=== PATIENT | male | born 1940 | race Caucasian/White ===

== ENCOUNTER 2016-08-07 13:30 | Inpatient (IN) | payer MEDICARE, BC ==
[~2016-08-07] VITALS: Ht 162.6 cm; Wt 60.1 kg
--- NOTE | ~2016-08-07 | ENPV ---
Vascular Lower Extremity Vein Mapping Procedure Demographics Patient Name DEBBIE ANDRADE Date of Study 08/07/2016 Patient Number [id number] Gender Male Date of 1940 Age 76 Visit Number [id number] Height 64 Accession Number [id number] Weight 125 Referring Maxime Hunt MD Physician DO Physician Physician Ordering Physician Maxime Bush DO Splicing Machine Operator Manager Of Maintenance Serena De Los Santos RVT Conclusions Summary Right GSV suitable for harvest from origin to knee. From knee to calf the GSV decreases in diameter. Left GSV suitable for harvest from origin to mid thigh. Procedure Type of Study: Veins:Lower Extremity Vein Mapping, Vein Mapping HI. Indications for Study:Pre op heart valve surgery. Appropriate Use Criteria:9 Patient Status:Routine. Study Location:Inpatient Portable. Technical Quality:Adequate visualization. Velocities are measured in cm/s ; Diameters are measured in cm + ++--------++--------+ !Superficial - Great Saphenous Vein !!Right !!Left ! + ++--------++--------+ !Location !!Diameter!!Diameter! + ++--------++--------+ !Sapheno Femoral Junction !!0.54 !!0.39 ! + ++--------++--------+ !GSV High Thigh !!0.27 !!0.24 ! + ++--------++--------+ !GSV Mid Thigh !!0.22 !!0.22 ! + ++--------++--------+ !GSV Low Thigh !!0.23 !! ! + ++--------++--------+ !GSV Knee !!0.13 !! ! + ++--------++--------+ !GSV Mid Calf !!0.11 !! ! + ++--------++--------+ !GSV Low Calf !!0.18 !! ! + ++--------++--------+ Signature dtt: BESSIE GARCIA: 08/07/16 1859 Physician Self Edit
--- NOTE | ~2016-08-07 | HP ---
PATIENT'S NAME: DEBBIE ANDRADE [facility] AGE: 76 Y [address] ROOM: [id number] [place], [place] [address] LOCATION: GPCU ADMIT DATE: 08/07/2016 History & Physical DISCHARGE DATE: 08/19/2016 FAMILY PHYSICIAN: Anai Smith ATTENDING PHYSICIAN: Delfino Easley DATE OF SERVICE: 08/07/2016 HISTORY OF PRESENT ILLNESS: Multivessel coronary artery disease. The patient is a very pleasant, 76-year-old, white male from [place], [place]. The patient was recently evaluated by his care provider with findings of atrial flutter. The patient did not have any complaints with chest pain or shortness of breath. He was set up to see Cardiology and underwent a stress test which returned markedly positive with an anterior ischemia and it was therefore recommended that he undergo a cardiac catheterization. This was done by Dr. Xie today in [place]. Findings were for severe multivessel coronary artery disease requiring surgical revascularization. An echo had been done at some point, but the results are not available to us at this time. There may also be a pulmonary hypertension. Following the catheterization, Dr. Xie contacted Dr. Easley for the transfer of the patient to [facility] under the care of Dr. Easley for surgical revascularization. PAST MEDICAL HISTORY: Illnesses: Dyslipidemia, atrial flutter, history of prostate cancer, gout, and GERD. SURGERIES/PROCEDURES: Prostate surgery, cholecystectomy, bilateral carpal tunnel surgery, and upper and lower extraction of teeth. ALLERGIES: NO KNOWN DRUG ALLERGIES. PERSONAL HISTORY: The patient [place] in [place]. He lives at home by himself. He has never been . He has never had children. 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 He has never consumed alcohol. He has never smoked. He served in the and in the [employer]. FAMILY HISTORY: His mother had history with goiter as well as breast cancer. He has a strong family history of coronary artery disease with his father having heart disease. He had a brother who from coronary artery disease and had had two CABGs by the age of 51. His brother was also a heavy smoker. He had PATIENT'S NAME: DEBBIE ANDRADE [facility] AGE: 76 Y [address] ROOM: [id number] [place], [place] [address] LOCATION: GPCU ADMIT DATE: 08/07/2016 History & Physical DISCHARGE DATE: 08/19/2016 FAMILY PHYSICIAN: Anai Smith ATTENDING PHYSICIAN: Delfino Easley another brother who had a myocardial infarction, and then another brother with a history of Parkinson's. HOME MEDICATIONS: Include, 1. Allopurinol 300 mg daily. 2. Aspirin 81 mg daily. 3. Diltiazem 120 mg extended release p.o. b.i.d. 4. [place] 5/325 one tab q.4 hours p.r.n. 5. Fiber Therapy 500 mg tablets, up to a 1000 mg p.o. q.4 hours p.r.n. constipation. 6. Multivitamin daily. 7. Fish oil 1000 mg daily. 8. Omeprazole 20 mg daily. 9. Potassium chloride 40 mEq b.i.d. 10. Lyrica 50 mg daily. 11. Zantac 150 mg daily. 12. Zocor 10 mg at h.s. 13. Vitamin B complex one tablet daily. SYSTEM REVIEW: GENERAL: No recent change in weight or appetite. No fever, chills, or sweats. No excessive fatigue. HEENT: He has some age-related visual changes. Does wear reading glasses. He is hard of hearing. No difficulty swallowing. The patient does wear upper and lower dentures. He does not currently have his dentures with him. RESPIRATORY: No recent complaints of shortness of breath, PAINTER, or PND. CARDIOVASCULAR: No chest pain, chest pressure, palpitations, and he has had some fluttering in his chest lately, that started at the workup that has currently brought the patient to the hospital. No complaints of lower extremity edema. GI: Does have fairly significant GERD for which he takes PPI and H2 hernandez. He does have very chronic constipation for which he and takes fiber medication. : Has had a history of prostate cancer and had surgery. He is chronically incontinent of urine and states that he wears briefs at home. He does have a very difficult time voiding if he is constipated. MUSCULOSKELETAL: Generalized arthritic aches and pains. He does not require any assistive devices for walking. NEUROLOGIC: No frequent or severe headaches. Has had a history of shingles and takes Lyrica. No history of seizures, memory loss, or syncope. ENDOCRINE: No history of diabetes or thyroid conditions. INTEGUMENT: No known skin diseases. PHYSICAL EXAMINATION: PATIENT'S NAME: DEBBIE ANDRADE [facility] AGE: 76 Y [address] ROOM: [place] [address] [facility] ADMIT DATE: 08/07/2016 History & Physical DISCHARGE DATE: 08/19/2016 FAMILY PHYSICIAN: Anai Smith ATTENDING PHYSICIAN: Delfino Easley VITAL SIGNS: Blood pressure 124/94, pulse is 94, respirations 16, O2 saturations 98% on room air. Weight is 58 kg, height is 162.5 cm. GENERAL: He is very pleasant. He is hard of hearing. HEENT: Normocephalic with EOMIs intact. He is edentulous. NECK: No palpable lymphadenopathy or thyromegaly. LUNGS: Clear to auscultation to the anterior. CARDIOVASCULAR: Tachy with atrial flutter. The heart tones are distant. ABDOMEN: Soft, nontender by 4 quadrants with positive bowel sounds throughout. EXTREMITIES: No overt varicosities or edema. MUSCULOSKELETAL: Good range of motion to bilateral upper and lower extremities. NEUROLOGIC: Alert, oriented. SKIN: Does have sunspots. IMPRESSION: 1. Severe multivessel coronary artery disease. 2. Tachycardia/atrial flutter. 3. Constipation, chronic. 4. Urinary incontinence. RECOMMENDATION AND PLAN: Dr. Easley reviewed the catheterization studies sent over from [place]. The patient will require a five vessel bypass consisting of a PDA, PL, LAD, OM, and ramus. We will need to get an echocardiogram as we are not able to reach the outlying facility to get the information. We will need to evaluate for possible pulmonary hypertension and see about the squeeze of the heart. We will be getting lab studies. The patient will need carotid Dopplers and vein mapping. The patient has consented to the surgery after discussion with Dr. Easley. Plans are for a first case tomorrow morning. YOSVANY CRISTINA APRN FOR DELFINO EASLEY DO DLQ/modl /[id number] D: [id number] T: [id number] HISTORY & PHYSICAL
--- NOTE | ~2016-08-07 | OR ---
PATIENT'S NAME: DEBBIE ANDRADE [facility] AGE: 76 Y [address] ROOM: [place] [address] LOCATION: GICU ADMIT DATE: 08/07/2016 OR/Procedure Report DISCHARGE DATE: FAMILY PHYSICIAN: HAYDEE GIORDANO MD ATTENDING PHYSICIAN: Delfino Swartz SURGEON: Fernanda Jones MD DIRECTOR OF CAREER SERVICES: DATE OF PROCEDURE: 08/08/2016 PREOPERATIVE DIAGNOSIS: Bladder neck obstruction. POSTOPERATIVE DIAGNOSIS: Probable bladder neck contracture. PROCEDURE: 1. Urethral dilatation with S curved dilators. 2. Insertion of 16-[place] catheter. INDICATIONS: I was called to operating room for to see Debbie Andrade. He would have been given a general anesthetic in preparation for his cardiac bypass and the nurses were unable to insert a Romero catheter. Apparently, he has a history of having a total prostatectomy in the past. He was prepped and draped. A #16-British coude tip catheter was passed. It appeared to advance very easily to about the area of the bladder neck for resistance was made and it would not slide into the bladder. Therefore, a guidewire was passed and over the guidewire, the S curve dilators were passed. After the first two dilators were passed, it opened up very nicely. The remaining one slid in very easily. Over the guidewire, a 16-[place] catheter was advanced over the guidewire into the bladder, irrigated easily and clearly, connected to straight drainage. He remained in the operating suite for his procedure by Dr. Swartz. FERNANDA JONES MD EKL/modl /[id number] d: 08/08/16 1342 t: 08/11/16 0439, OPERATIVE SUMMARY
--- NOTE | ~2016-08-07 | OR ---
PATIENT'S NAME: DEBBIE ANDRADE [facility] AGE: 76 Y [address] ROOM: [place] [address] LOCATION: GPCU ADMIT DATE: 08/07/2016 OR/Procedure Report DISCHARGE DATE: 08/19/2016 FAMILY PHYSICIAN: Anai Smith ATTENDING PHYSICIAN: Delfino Easley SURGEON: Delfino Easley DO CIGARETTE EXAMINER: DATE OF PROCEDURE: 08/08/2016 PREOPERATIVE DIAGNOSES: 1. Multivessel coronary artery disease including left main disease. 2. Likely septic shock from urinary tract infection. 3. Depressed ejection fraction. 4. Depressed blood pressure. POSTOPERATIVE DIAGNOSES: 1. Multivessel coronary artery disease including left main disease. 2. Likely septic shock from urinary tract infection. 3. Depressed ejection fraction. 4. Depressed blood pressurje. PROCEDURE: 1. Insertion of a right femoral arterial intraaortic balloon pump. 2. Coronary artery bypass grafting x5 with left internal mammary artery bypass to the LAD, reverse saphenous vein graft to the obtuse marginal, reverse saphenous vein graft to the ramus intermedius, reverse saphenous vein graft to the posterolateral branch, and sequential to the posterior descending branch. REFERRING PHYSICIAN: Anson Xie MD. BRIEF HISTORY: Mr. Andrade is a 76-year-old white male with the above-noted diagnosis. He has been brought to the operative suite today after informed consent was obtained for revascularization. Given his severe left main disease and depressed ejection fraction, I felt that treating his sepsis and septic shock would be easier with revascularization and intraaortic balloon pump support rather than making him weight, as I felt that marked depression of his blood pressure would cause decreased coronary perfusion given his left main disease. DESCRIPTION OF PROCEDURE: He has been brought to the operative suite, sterilely prepped and draped in the usual fashion. We began with insertion of right intraaortic balloon pump. The right femoral artery was accessed without difficulty and a guidewire was placed under transesophageal echocardiographic guidance to the arch. Soft tissue dilator was placed over the guidewire and removed and then soft tissue dilator inside the sheath was placed. The sheath slid without resistance. The dilator was removed, and then the intraaortic PATIENT'S NAME: DEBBIE ANDRADE [facility] AGE: 76 Y [address] ROOM: [id number] [place] [id number] LOCATION: GPCU ADMIT DATE: 08/07/2016 OR/Procedure Report DISCHARGE DATE: 08/19/2016 FAMILY PHYSICIAN: Anai Smith ATTENDING PHYSICIAN: Delfino Easley balloon pump catheter was placed over the guidewire to the level of the subclavian artery. The guidewire was removed. Counterpulsation was initiated and we connected to the arterial monitor. The arterial waveform was good. The catheter was secured in position. We then made our sternal incision. Concurrently to this, saphenous vein was harvested endoscopically. The sternum was then divided in the midline and Adina and electrocautery were used for hemostasis along the marrow and sternal edges. Mammary retractor was placed. Left internal mammary artery was harvested in standard fashion. Prior to its division, the patient was heparinized, the mammary was then divided and prepared for bypass. The mammary tractor was removed and a sternal retractor was placed. The pericardium was opened, pericardial wall was created, and cannulation sutures were placed in the ascending aorta and right atrium for bypass and cardioplegia cannulas, and the patient was cannulated and connected to bypass pump without difficulty. The vein was then prepared for bypass. Cardiopulmonary bypass was then initiated. Crossclamp was applied. Antegrade and retrograde cardioplegia along with topical cold saline was used for cardiac arrest and the heart arrested without difficulty. The intraaortic balloon pump was switched to internal at 80 and the posterior descending and posterolateral branches were identified. We began with an end- to-side anastomosis to the posterior lateral branch, performed with 7-0 Prolene. We then sized this appropriately and then performed a [id number]-rg-[id number] anastomosis to the posterior descending branch and then connected this to the cardioplegia system. Another 500 mL of vein graft and retrograde cardioplegia was given. Similar venous distal anastomosis were then connected to the ramus and obtuse marginal. Cardioplegia was given after each of these was completed and then the left internal mammary artery was anastomosed to the left anterior descending artery, again in an end-to-side fashion with 7-0 Prolene. Once this was complete, the bulldog was removed from the internal mammary showing good distal flow down the LAD and an intact anastomosis. The cross-clamp was now removed and a partial occlusion clamp was applied. Our three vein grafts were anastomosed to the ascending aorta with 4-0 punch and 6-0 Prolene. During this time period, warm blood was given in a retrograde fashion and also down the vein grafts. Our partial occlusion clamp was now removed and vein grafts were de-aired, bulldog was removed, and distal flow was given. Distal sites and proximal sites were hemostatic. Two atrial and one ventricular temporary pacemaking wire were placed and warm blood was discontinued and the retrograde cannula was removed. Ventilations were now initiated. Balloon pump was switched to one-to-one and we weaned from cardiopulmonary bypass without difficulty. The venous cannula was now removed. Appropriate volume returned from the pump to the patient. The ascending aortic cannula was removed and protamine was given. Copious amounts of antibiotic-infused saline were used to irrigate the sternum and the mediastinum. Four chest tubes were placed, one in each pleural space, one in the anterior mediastinal space, and one in the posterior pericardial space. The sternum was then approximated with ZipFix System. Soft tissues were irrigated again and closed in a layered PATIENT'S NAME: DEBBIE ANDRADE [facility] AGE: 76 Y [address] ROOM: [place] [address] LOCATION: GPCU ADMIT DATE: 08/07/2016 OR/Procedure Report DISCHARGE DATE: 08/19/2016 FAMILY PHYSICIAN: Anai Smith ATTENDING PHYSICIAN: Delfino Easley. All sponge, instrument, and needle counts were correct, and the patient was transferred to the intensive care unit in stable condition. DELFINO EASLEY DO MCB/modl /[id number] d: 08/26/16 2305 t: 08/27/16 0951, OPERATIVE SUMMARY
--- NOTE | ~2016-08-07 | DS ---
PATIENT'S NAME: DEBBIE ANDRADE [facility] AGE: 76 Y [address] ROOM: [address] [place], [place] [address] LOCATION: GPCU ADMIT DATE: 08/07/2016 Discharge Summary DISCHARGE DATE: 08/19/2016 FAMILY PHYSICIAN: Anai Smith ATTENDING PHYSICIAN: Delfino Easley HISTORY OF PRESENT ILLNESS AND HOSPITAL COURSE: The patient is a 76-year-old, white male who was transferred here from [facility] by Dr. Xie, due to findings of severe multi- vessel coronary artery disease including left main disease. The patient was found to be in atrial fibrillation during the time of his cardiac catheterization. He had a depressed ejection fraction. The patient was sent for coronary artery bypass grafting. Upon his arrival, patient consented to proceed with the surgery after having a discussion with Dr. Easley regarding surgical revascularization. The patient exhibited difficulty with voiding and a UA was obtained. The patient was started on Levaquin after there was evidence of urinary tract infection. During the middle of the night prior to the surgery, the patient went into septic shock, likely from urinary tract infection. The patient did have marked decrease in systolic blood pressures. Cardizem was started. Given the depressed EF and the lack of pressures, it was decided to place an intraaortic balloon pump and proceed with coronary artery bypass grafting. The patient went down for the procedure and an insertion of the right femoral arterial intraaortic balloon pump was performed. There was difficulty placing a Romero catheter and Dr. Jones was called in to the OR. He performed urethral dilatation with an S-Curve dilator and insertion of a 16-[place] catheter. Dr. Easley proceeded with coronary artery bypass grafting x5 vessels with the left internal mammary artery bypass to the LAD, reverse saphenous vein graft to the obtuse marginal, reverse saphenous vein graft to the ramus intermedius, reverse saphenous vein graft to the posterior lateral branch, and sequential to the posterior descending branch. The patient was transferred to the ICU following the procedure. He remained intubated. He was started on vasopressin and Levophed. He did receive packed cells and platelets. The intraaortic balloon pump was discontinued on postoperative day 1. The patient's culture and sensitivity of the urine returned showing appropriate antibiotic choice of Levaquin which was continued. The patient was extubated on postoperative day 2. He was transferred to the progressive care floor after his lines and drips were discontinued on postoperative day 3. His chest tubes and pacemaking wires were discontinued when appropriate. Dr. Jones followed the patient on the progressive care floor for decision making with regard to removal of the catheter. It was eventually removed, however, it did require replacement. The patient worked with PT and OT for strengthening purposes. The patient did remain in atrial fibrillation. He was started on Coumadin and maintained on amiodarone. The patient was likely with chronic atrial fibrillation. However, it was unknown due to the lack of previous medical care. Given that PATIENT'S NAME: DEBBIE ANDRADE [facility] AGE: 76 Y [address] ROOM: [id number] [place] [address] LOCATION: GPCU ADMIT DATE: 08/07/2016 Discharge Summary DISCHARGE DATE: 08/19/2016 FAMILY PHYSICIAN: Anai Smith ATTENDING PHYSICIAN: Delfino Easley the patient's pressures remained low, cortisol level was drawn. The patient was started on Florinef. His laboratories were monitored. His INR was brought to a therapeutic level. The patient worked with care management to discuss discharge needs and given that patient lives alone, he opted to transfer to the [facility]. Dr. Jones indicated that the patient would need to discharge with the Romero left intact and return for a followup in 2 weeks. The patient stabilized and had no evidence of sepsis upon discharge. He had no healing complications. The patient's medications were optimized based on his tolerability and he was found stable to transfer to the [facility] on 2016. DISCHARGE/TRANSFER DIAGNOSIS: Include: Deconditioning secondary to coronary artery bypass grafting x5 vessels on 08/08/2016. SECONDARY DIAGNOSES: Include: 1. Urosepsis. 2. Atrial fibrillation/atrial flutter. 3. Dyslipidemia. 4. History of prostate cancer. 5. Gout. 6. Gastroesophageal reflux disease. 7. Coronary artery disease. 8. Long-term anticoagulation for atrial fibrillation. 9. Urinary retention. DISCHARGE INSTRUCTIONS: The patient was accepted by Dr. Montalvo. The patient is to follow with Dr. Hilario Jones in 2 weeks regarding the Romero catheter. The patient is also to follow with Dr. Xie in [address] Easley in 2 to 3 weeks. Unfortunately, we did receive a phone call from the [facility] that they would likely not be able to transfer the patient to the followup appointments. Dr. Xie [facility] and therefore, the patient would be able to see him, but regarding Dr. Easley and Dr. Jones, the home will likely find a urologist in [place], [place] and Dr. Xie will likely see the patient for wound care for cardiothoracic surgery. The patient is to be on a cardiac prudent diet of regular texture. He is full weightbearing status with strict sternal precautions until 09/19/2016. He is to work with PT and OT. He is to be spot checked to maintain oxygen saturations at 90%. He does not require Accu-Cheks. He should have a PT/INR checked on 08/21/2016. The patient may shower. His graft site sutures should be removed from his bilateral legs at the knee, groin, and ankle on 08/29/2016. The patient has no dressings. He is to wear SHERICE hose on in the a.m. and off in the p.m. He is leaving the facility at [facility] with a Romero catheter intact secondary to BPH. DISCHARGE MEDICATIONS: Include: PATIENT'S NAME: DEBBIE ANDRADE [facility] AGE: 76 Y [address] ROOM: [place] [address] LOCATION: GPCU ADMIT DATE: 08/07/2016 Discharge Summary DISCHARGE DATE: 08/19/2016 FAMILY PHYSICIAN: Anai Smith ATTENDING PHYSICIAN: Delfino Easley 1. Allopurinol 300 mg daily. 2. Amiodarone 200 mg twice a day. 3. Diltiazem 120 mg twice a day. 4. Aspirin 81 mg daily. 5. Zocor 10 mg daily. 6. Carvedilol 3.125 mg twice a day. 7. Colace 100 mg twice a day. 8. Fiber therapy at 1000 mg p.r.n. 9. Florinef. 0.1 mg 1 tablet every 48 hours. 10. Lasix 20 mg q.a.m. 11. Omeprazole 20 mg daily. 12. Multivitamin daily. 13. Potassium chloride 40 mEq twice a day. 14. Lyrica 50 mg daily. 15. Coumadin 1 mg daily. 16. [place] 5/325, 1 to 2 every 4 hours as needed. 17. Dulcolax 10 mg suppository per rectum p.r.n. 18. Zantac 150 mg daily. 19. Vitamin B complex 1 tablet daily. 20. Fish oil 1000 mg daily. CONDITION ON DISCHARGE: The patient was transferred to the [facility] in stable condition. YOSVANY CRISTINA APRN FOR DELFINO EASLEY DO DLQ/modl /[id number] d: 09/06/16 1347 t: 09/08/16 1022, DISCHARGE SUMMARY
--- NOTE | ~2016-08-07 | ECHO ---
Transthoracic Echocardiography Report (TTE) Demographics Patient Name DEBBIE ANDRADE Date of Study 08/07/2016 Patient Number [id number] Visit Number [id number] Date of 1940 Room Number G6321 Gender Male Number Age 76 year(s) Referring Maxime Bush DO Physiotherapy Assistant Prema Shah RVT, Physician Anne-Marie Griggs RDCS J Physician Interpreting Emmanuel Carter Deputy Bailiff Physician Yazan MARIE Supervising Ordering Maxime Bush DO MD/MLP Physician Nurse [employer] Patternmaker Conclusions Contractility Score Summary Summary The estimated left ventricular ejection fraction is 50%. Mild concentric left ventricular hypertrophy. Diastolic assessment reveals Grade I diastolic dysfunction. The left atrium is mildly dilated. Mild calcification of the mitral valve. Mild mitral regurgitation by color Doppler. There is moderate aortic regurgitation by color Doppler. The ascending aorta appears mildly dilated. The maximum diameter measures 3.7 cm. Sinus of valsalva appears mildly dilated measuring 3.42 cm. Procedure Type of Study TTE procedure:2D Echocardiogram. Procedure Date Date: 08/07/2016 Start: 06:24 PM Study Location: Inpatient Portable Technical Quality: Good visualization Indications:Pre surgical clearance. Additional Indications:Pre-op CABG Appropriate Use Criteria: 9 Patient Status: Routine Rhythm: NSR HR: 75 bpm BP: 161/96 mmHg M-Mode/2D Measurements LV Diastolic Dimension: 4.06 cm LV Systolic Dimension: 2.88 cm LV Septum Diastolic: 1.12 cm LV PW Diastolic: 1.12 cm AO Root Dimension: 3.1 cm Cardiac Output: 4.6 l/min AV Cusp Separation: 1.8 cm RV Diastolic Dimension: 2.22 cm LA volume: 47 ml LVOT: 2.1 cm RV Base: 3.1 cm LVOT VTI: 17.7 cm RV Mid: 2.4 cm LV Stroke volume: 61.27 ml TDI-S': 12.2 cm/s Doppler Measurements AV Peak Velocity: 1.09 m/s MV Peak E-Wave: 0.55 m/s AV Peak Gradient: 4.75 mmHg MV Peak A-Wave: 1.05 m/s AV Mean Gradient: 3 mmHg MV E/A Ratio: 0.53 LVOT Peak Velocity: 0.9 m/s MV P1/2t: 113 msec AV P1/2t: 313 msec TR Gradient:19.36 mmHg PV Peak Velocity: 1.19 m/s Estimated RAP:5 mmHg PV Peak Gradient: 5.66 mmHg Estimated RVSP: 24 mmHg Estimated PASP: 24.36 mmHg E' Septal Velocity: 0.05 m/s A' Septal Velocity: 0.1 m/s E' Lateral Velocity: 0.11 m/s A' Lateral Velocity: 0.11 m/s Findings Left Ventricle Mild concentric left ventricular hypertrophy. Diastolic assessment reveals Grade I diastolic dysfunction. Posterior hypokinesis. Inferior hypokinesis. Right Ventricle Normal right ventricle structure and function. Left Atrium The left atrium is mildly dilated. There is no evidence of patent foramen ovale or atrial septal defect by color Doppler. Right Atrium Normal right atrial size. Mitral Valve Mild calcification of the mitral valve. Mild mitral regurgitation by color Doppler. Aortic Valve The aortic valve is mildly sclerotic. There is moderate aortic regurgitation by color Doppler. Tricuspid Valve Normal tricuspid valve structure and function. Pulmonic Valve Normal pulmonic valve structure and function. Pericardial Effusion No evidence of pericardial effusion. Miscellaneous The ascending aorta appears mildly dilated. The maximum diameter measures 3.7 cm. Sinus of valsalva appears mildly dilated measuring 3.42 cm. Pleural Effusion No evidence of pleural effusion. Signature dtt: René Benitez dtd: 08/07/16 1824 Physician Self Edit
--- NOTE | ~2016-08-07 | OR ---
PATIENT'S NAME: DEBBIE ANDRADE [facility] AGE: 76 Y [address] ROOM: [address], [place] [address] LOCATION: GPCU ADMIT DATE: 08/07/2016 OR/Procedure Report DISCHARGE DATE: FAMILY PHYSICIAN: Anai Smith ATTENDING PHYSICIAN: Delfino Swartz SURGEON: Ronn Mortensen MD HELP DESK ENGINEER: DATE OF PROCEDURE: 08/07/2016 The following lines were placed during the patient's CABG. HISTORY OF PRESENT ILLNESS: Debbie Andrade is a 76-year-old gentleman with a history of severe 3-vessel coronary artery disease. The night prior to the patient's CABG, he was seen by one of my colleagues, and the plan was discussed including [place]-Jayna catheter, arterial line, and transesophageal echo. He agreed to the plan. Unfortunately, as the night wore on, he began to suffer anxiety and then mental status changes. He also became febrile. By the time I arrived at approximately 0615 hours in the morning, the patient was shivering and rigoring and somewhat less responsive than I would have liked to have seen. At that point, I discussed with the surgeon and the fact that the patient appeared to be becoming septic and his feeling was that if that were indeed the case, his heart was in bad enough shape that he did not think he would survive the changes in blood pressure that would likely come with that sepsis. The feeling was then that we could fix the sepsis, but we could not fix the heart attack. So, we went ahead and proceeded to the OR. Mr. Andrade underwent induction of general anesthesia and intubation without incident. The lines were all placed in the operating room, which defers slightly from our protocol; however, it was felt that since he had rigors, he was unable to cooperate fully with placement of line. PROCEDURE #1: The left arm was extended. Dorsal aspect of the wrist sterilely prepped with chlorhexidine. The radial pulse was identified by palpation and cannulated with a 20-gauge Arrow art line kit. The wire was threaded into the artery without difficulty and the catheter was then threaded off the wire into the artery. A good arterial waveform was obtained while on transduction of said catheter. The entire assemblage was then fixed to the patient's wrist using sterile Tegaderm and tape. PROCEDURE #2: Placement of central line and infiltration of [place]-Jayna catheter. The patient was placed in Trendelenburg position. The path of the internal jugular vein mapped using ultrasound. The neck was prepped with chlorhexidine while I gloved and gowned. After sterile hand washing technique, a maximal sterile barrier was placed. The internal jugular vein was cannulated at the marked area contacting dark venous blood on the first pass. The wire was then threaded without difficulty or ectopy. A small skin lilia was made and a 9-[place] 10 cm introducer was placed into its hub. The wire and obturator were removed and the introducer sutured in place with 2-0 PATIENT'S NAME: DEBBIE ANDRADE [facility] AGE: 76 Y [address] ROOM: [address] [address] [facility] ADMIT DATE: 08/07/2016 OR/Procedure Report DISCHARGE DATE: FAMILY PHYSICIAN: Anai Smith ATTENDING PHYSICIAN: Delfino Swartz. At that point, a [place]-Jayna catheter was removed from its wrappings. A sheath was inserted over the tip and it was used to cover the length of it. At that point, all lumens were then flushed to ensure patency and the balloon checked to ensure function and symmetry. This was then inserted into the right obturator lumen of the introducer and floated out to a wedge position at about 58 cm. The wedge was approximately 8 at that time. No difficulty or ectopy was encountered during placement of the [place]. With a good waveform obtained, the sheath was then connected to the transducer and the entire assemblage covered with sterile Tegaderm. At that point, the patient was prepped and draped. His stomach was then suctioned with an 18-[place] nasogastric tube and the CRISTY probe was placed in the posterior pharynx without any problem as he was edentulous. Pictures obtained were of good quality and adequate for interpretation. FINDINGS PREBYPASS: 1. Slightly diminished left ventricular systolic function. 2. Mild left ventricular hypertrophy of concentric nature. 3. Mitral valve with damm-kx-laexxble regurgitation. No problems with valve morphology. The aortic valve is trileaflet with a central jet of what I would consider moderate aortic insufficiency. The root is somewhat dilated with a maximal distance of about 3.6 cm immediately distal to the valve. The rest of the aorta has occasional plaques one of which extends greater than 0.5 cm into the lumen and that is at the junction of descending and ascending aorta at the end of the arch there. In the descending, there is a 4.6 mm projection. No freely mobile plaques are observed. FINDINGS POST BYPASS: Overall, greatly diminished ejection fraction, asymmetric contraction secondary to pacer. The right ventricle in particular is sluggish and poorly contractile. At that point, an aortic balloon pump was placed. Its location confirmed to be approximately 1 cm distal to the arch by CRISTY. Valvular exam was consistent with preop with [id number] MR, moderate AI. No new plaques were noted. Thank you very much for allowing me to participate in Mr. Andrade's care. If you have any questions regarding placement of these lines of CRISTY, please do not hesitate to call. RONN L MD YARY MORTENSEN/dave PATIENT'S NAME: DEBBIE ANDRADE [facility] AGE: 76 Y [address] ROOM: [place] [address] [facility] ADMIT DATE: 08/07/2016 OR/Procedure Report DISCHARGE DATE: FAMILY PHYSICIAN: Anai Smith ATTENDING PHYSICIAN: Delfino Swartz /[id number] d: 08/11/16 2325 t: 08/20/16 1617, OPERATIVE SUMMARY
[2016-08-07] MEDS ORDERED: PRILOSEC20 MG PO (14:49)
[2016-08-07] MEDS ORDERED: K-TAB ER20 MEQ PO (14:50)
[2016-08-07] MEDS ORDERED: DILTIAZEM 24HR120 M1 PO (14:50)
[2016-08-07] MEDS ORDERED: ZANTAC (NON-FO150 MG PO (14:50)
[2016-08-07] MEDS ORDERED: ZOCOR10 MG PO (14:51)
[2016-08-07] MEDS ORDERED: HYDROCODON-ACE1 EAC4 PO (14:51)
[2016-08-07] MEDS ORDERED: LYRICA 50MG CAP50 MG PO (14:52)
[2016-08-07] MEDS ORDERED: FIBER THERAPY500 MG PO (14:53)
[2016-08-07] MEDS ORDERED: ASPIRIN LO-DOSE81 MG PO (14:53)
[2016-08-07] MEDS ORDERED: FISH OIL 1,0001 EAC1 PO (14:54)
[2016-08-07] MEDS ORDERED: BAL B-1001 EACH PO (14:54)
[2016-08-07] MEDS ORDERED: ZYLOPRIM300 MG PO (14:55)
[2016-08-07] MEDS ORDERED: THERAGRAN-M1 TAB PO (14:55)
--- NOTE | 2016-08-07 16:23 | NUR ---
Pt is 76 y/o male admit for CABG consult after positive stress test in [place]. Attending is . No allergies. Hx prostate CA,hypercholest, hx shingles-nerve pain,arthritis,constipation,gas/bloating,incontinence. PT alert and oriented x3. Came via ambulance from [place]. Pt resides at home by himself. Plan is for CABG in am. NPO after midnight.
[2016-08-07 17:09] LABS: BASOPHIL % 0.4 %; EOSINOPHIL % 0.4 %; HEMATOCRIT 46.7 % (37.0-53.0); IMMATURE GRANULOCYTE # 0.1 K/uL (0.0-0.3); IMMATURE GRANULOCYTE % 0.5 %; LYMPHOCYTE # 0.9 K/uL (0.8-4.0); LYMPHOCYTE % 8.8 %; MCH 30.9 pg (27.0-34.0); MCHC 34.3 gm/dL (32.0-36.5); MCV 90.2 fl (83.0-98.0); MONOCYTE # 0.6 K/uL (0.0-1.0); MPV 9.8 fl (9.4-12.4); NEUTROPHIL # (ANC) 8.7 K/uL (1.4-9.0); NEUTROPHIL % 83.9 %; NRBC % 0 /100WBC (0-0.00); PLATELET COUNT 273 K/uL (150-450); RBC 5.18 M/uL (3.50-5.50); RDW-CV 12.7 % (11.9-14.6); WBC 10.3 K/uL (4.0-11.0)
[2016-08-07 17:16] LABS: PROTIME 10.7 SECONDS (9.6-11.1)
--- NOTE | 2016-08-07 17:39 | NUR ---
Significant Event: pt arrived from [facility] by ambulance today. No c/o pain, HR was flutter rates 90-150s but back to NSR at 1500. Pt to have cabg 1st case in am. Cath today, R)radial soft coban d/c/i. Pt constipated, fiber and prune juice given. Pt incont.and urgency alot with hx prostate CA. Follow up:
[2016-08-07 20:42] LABS: BICARBONATE 21.5 mmol/L (18.0-23.0); PCO2 31 mmHg (35-45); PO2 71 mmHg (80-90)
[2016-08-08 00:07] LABS: BILIRUBIN URINE NEGATIVE (NEGATIVE); BLOOD URINE 250 /UL (NEGATIVE); GLUCOSE URINE NEGATIVE (NEGATIVE); KETONE URINE NEGATIVE (NEGATIVE); LEUKOCYTES URINE 500 /UL (NEGATIVE); NITRITE URINE NEGATIVE (NEGATIVE); PROTEIN URINE 30 mg/dL (NEGATIVE); UROBILINOGEN URINE NORMAL (NORMAL)
[2016-08-08 00:29] LABS: COLOR URINE YELLOW (YELLOW)
[2016-08-08 00:30] LABS: TURBIDITY URINE 3+ (CLEAR)
[2016-08-08 01:01] LABS: BACTERIA URINE MANY (NEGATIVE); WBC URINE FULL FIELD #/HPF (NEGATIVE)
[2016-08-08 03:43] LABS: ALBUMIN 3.6 gm/dL (3.5-5.0); ANION GAP 14.4 (10.0-19.0); CALCIUM 8.9 mg/dL (8.5-10.5); CREATININE 1.4 mg/dL (0.6-1.3); POTASSIUM 4.4 mMol/L (3.7-5.1)
--- NOTE | 2016-08-08 07:19 | NUR ---
Significant Event:Patient A/Ox3 [place] RESERVATION VSS on RA all shift. Only c/o constipation since arrival to [facility]. Prune juice given by day shift and miralax given at HS. Bowel movements went from hard lumpy stool to soft mushy formed stool. UA (+) MRSA swab (+) results called to Maxime. Patient flipped in and out of a-flutter t/o the night HR increased to 140s Bibler notified and cardizem bolus and gtt started. IV Levaquin given for UTI. Pre-op ATB changed to Vanco. At 0500 patient became very shaky c/o being cold and anxious. HR 150 increased cardizem. Notified Maxime of patient changes and Janay from anesthesia. Maxime up to see patient prior to surgery and ok'd. Follow up:
[2016-08-08 13:35] LABS: HEMATOCRIT 26.4 % (37.0-53.0); HEMOGLOBIN 8.8 g/dL (11.0-16.0); MCHC 33.3 gm/dL (32.0-36.5); MPV 9.8 fl (9.4-12.4); RBC 2.84 M/uL (3.50-5.50); RDW-CV 14.6 % (11.9-14.6)
[2016-08-08 13:36] LABS: PLATELET COUNT 67 K/uL (150-450)
[2016-08-08 13:46] LABS: PTT 68 SECONDS (25-32)
[2016-08-08 13:47] LABS: PROTIME 21.7 SECONDS (9.6-11.1)
[2016-08-08 14:13] LABS: ALPHA ANGLE 58 degrees; CLOT FORMATION TIME 171 seconds; CLOTTING TIME 199 seconds; MAXIMUM CLOT FIRMNESS 47 mm; MAXIMUM LYSIS 0 %
[2016-08-08 14:14] LABS: ALPHA ANGLE 62 degrees (70-81); CLOTTING TIME 125 seconds (43-82); MAXIMUM CLOT FIRMNESS 48 mm (51-72)
[2016-08-08 14:32] LABS: BICARBONATE 21.2 mmol/L (18.0-23.0); PCO2 40 mmHg (35-45); PO2 348 mmHg (80-90); POTASSIUM 3.7 mEq/L (3.7-5.1); SODIUM 143 mEq/L (135-145)
[2016-08-08 14:33] LABS: BICARBONATE 24.6 mmol/L (18.0-23.0); PCO2 52 mmHg (35-45); PO2 273 mmHg (80-90)
[2016-08-08 14:34] LABS: POTASSIUM 4.3 mEq/L (3.7-5.1); SODIUM 142 mEq/L (135-145)
[2016-08-08 14:42] LABS: PCO2 48 mmHg (35-45); PO2 236 mmHg (80-90)
[2016-08-08 14:43] LABS: BICARBONATE 23.6 mmol/L (18.0-23.0); POTASSIUM 4.1 mEq/L (3.7-5.1); SODIUM 143 mEq/L (135-145)
[2016-08-08 14:44] LABS: BICARBONATE 24.1 mmol/L (18.0-23.0); PCO2 48 mmHg (35-45); PO2 336 mmHg (80-90)
[2016-08-08 14:45] LABS: POTASSIUM 3.9 mEq/L (3.7-5.1); SODIUM 143 mEq/L (135-145)
[2016-08-08 14:45] LABS: BICARBONATE 20.3 mmol/L (18.0-23.0); PCO2 44 mmHg (35-45); PO2 321 mmHg (80-90)
[2016-08-08 14:46] LABS: POTASSIUM 3.6 mEq/L (3.7-5.1); SODIUM 144 mEq/L (135-145)
[2016-08-08 15:08] LABS: BICARBONATE 18.4 mmol/L (18.0-23.0); PCO2 44 mmHg (35-45); PO2 266 mmHg (80-90)
[2016-08-08 15:31] LABS: ANION GAP 17.3 (10.0-19.0); CALCIUM 8.7 mg/dL (8.5-10.5); POTASSIUM 3.3 mMol/L (3.7-5.1)
--- NOTE | 2016-08-08 17:23 | NUR ---
PATIENT WAS A CABG TODAY, PT ARRIVED TO FLOOR AROUD 1415 AND PLACED ON OUR VENT, PT HAS 7.5 ET TUBE @ 23CM AT HIS LIP, BREATH SOUNDS COARSE RALES THROUGHOUT, SXN A SCANT AMOUNT OF WHITE SPUTUM, ETCO2 32-36, WILL CONTINUE TO MONITOR PT THROUGHOUT THE NIGHT AND TRY TO WEAN IN THE AM
--- NOTE | 2016-08-08 18:40 | NUR ---
Significant Event:ADMITTED TO CIU POSTCABG X 5, UNABLE TO WEAN VENT TODAY D/T HYPOTENSION AND USE OF PRESSORS. TOTASL OF 2 ALBUMEN AND 1 PRBC GIVEN POST SURGERY SEE CCOU FLOW SHEET FOR EVENTS OF SHIFT.. OG PLACED PER DR. ROSE ORDERS. KEE PLACED BY DR. GARCIA, DO NOT REMOVE. Follow up:CONTINUE TO WEAN GTTS PER DR. EASLEY
--- NOTE | 2016-08-08 18:44 | NUR ---
Significant Event:SEE CCOU FLOW SHEET FOR EVENTS OF POST OP CARE Follow up:
[2016-08-08 21:29] LABS: BICARBONATE 18.8 mmol/L (18.0-23.0); PCO2 31 mmHg (35-45); PO2 82 mmHg (80-90)
[2016-08-09 01:12] LABS: HEMOGLOBIN 10.6 g/dL (11.0-16.0)
[2016-08-09 04:01] LABS: BICARBONATE 28.4 mmol/L (18.0-23.0); PCO2 34 mmHg (35-45); PO2 79 mmHg (80-90)
[2016-08-09 04:15] LABS: CALCIUM 7.6 mg/dL (8.5-10.5); CREATININE 1.4 mg/dL (0.6-1.3); POTASSIUM 3.5 mMol/L (3.7-5.1)
[2016-08-09 04:16] LABS: ANION GAP 15.5 (10.0-19.0)
[2016-08-09 04:18] LABS: HEMOGLOBIN 10.2 g/dL (11.0-16.0); MCH 30.7 pg (27.0-34.0); MCHC 35.2 gm/dL (32.0-36.5); MPV 11.2 fl (9.4-12.4); RBC 3.32 M/uL (3.50-5.50); RDW-CV 15.1 % (11.9-14.6)
[2016-08-09 04:25] LABS: MCV 87.3 fl (83.0-98.0)
--- NOTE | 2016-08-09 05:15 | NUR ---
PATIENT REMAINS ON A FIO2 OF 40% WITH SATURATIONS IN THE HIGH 90'S. HE HAS BEEN CLEAR BUT DIMINISHED MOST OF THE SHIFT, SOMETIMES SLIGHTLY COARSE. SUCTIONED SCANT AMOUNTS OF THICK CREAMY THROUGH OUT SHIFT. ETCO2 HAS RAN 27-32. WILL CONTINUE TO MONITOR PATIENT.
--- NOTE | 2016-08-09 05:54 | NUR ---
PATIENT IS SLIGHTLY SEDATED WITH IV PROPOFOL AT 25 MEQ/KG/MIN,WILL OPEN HIS EYES WHEN SUCTIONED OR REPOSITIONED DOES NOT FOLLOW SIMPLE COMMANDS,CLEAR UPPER LUNGS SOUND DIMINISHED ON THE BASES,THICK CREAMY SECRETIONS WHEN SUCTIONED MODERATE AMOUNT,SIMV VENT MODE,3 CHEST TUBES TO -20 CM SUCTION S.S DRAINAGE MODERATE AMOUNT,FIO2=40%,I8ZLP=08%,LEVOPHED,EPINEPHRINE AND PRIMACOR TO KEEP C.I>2.2. FOLLOW UP:CONTINUE TO MONITOR PATIENT'S HEMODYNAMIC AND RESPIRATORY STATUS CLOSELY,WEAN DRIPS AND VENT WHEN POSSIBLE.
[2016-08-09 09:14] LABS: HEMATOCRIT 23.8 % (37.0-53.0)
[2016-08-09 09:28] LABS: INR - (THERAPEUTIC) 1.5 (0.9-1.1); PROTIME 16.1 SECONDS (9.6-11.1)
[2016-08-09 14:20] LABS: HEMATOCRIT 25.9 % (37.0-53.0); HEMOGLOBIN 9.1 g/dL (11.0-16.0)
--- NOTE | 2016-08-09 17:19 | NUR ---
D: CABG X 5 I: VENT, MDI R: PT REMAINED ON 40% FIO2, BS C&D IN UPPER LOBES & DIM IN BASES, SXNED OUT SCANT THIN CLEAR SECRETIONS, NO OTHER SIGNIFICANT CHANGES T/O DAY P: WEAN PER CABG PROTOCOL TOMORROW MORNING
--- NOTE | 2016-08-09 17:39 | NUR ---
Significant Event: Continues to be sedated on vent. Levophed and vasopressin weaned off. IABP removed this afternoon by without complications. IABP site is soft without apparent bleeding. Vital signs stable. 1110mL of chest tube output this shift. Platelets, FFP, PRBCs, and albumin given. Plan to wean vent in AM. Follow up: continue
[2016-08-09 19:19] LABS: HEMATOCRIT 24.7 % (37.0-53.0); HEMOGLOBIN 8.6 g/dL (11.0-16.0)
[2016-08-09 21:57] LABS: CALCIUM 7.7 mg/dL (8.5-10.5); POTASSIUM 3.8 mMol/L (3.7-5.1)
--- NOTE | 2016-08-10 04:09 | NUR ---
SIGNIFICANT EVENT: HYPOTENSIVE AT BEGINNING OF SHIFT, ALBUMIN 500ML AND I UNIT PRBCS GIVEN. CONTINUED TO HAVE LOW UOP AND MAPs, VIGILEO STARTED PER FLOWTRACK, DOBUTAMINE STARTED AT 2MCG/KG/MIN BASED ON CIs. UOP CONTINUED TO BE LOW, BUMEX 1MG GIVEN. UOP AND BP IMPROVED AFTER THIS. PT NODDING APPROPRIATELY AND FOLLOWING COMMANDS, DENIES PAIN. NO OXYGENATION ISSUES THROUGHOUT THE NIGHT. FOLLOW UP:
--- NOTE | 2016-08-10 04:31 | NUR ---
No vent changes made this shift. Continues on 40%, SpO2 high 90s. EtCO2 high 20s. BrSs slightly coarse at times, suctioned small amount of white, thick secretions from ETT. Sedation lowered, continue to wean and wean from ventilator today.
[2016-08-10 04:42] LABS: ANION GAP 13.6 (10.0-19.0); CREATININE 1.4 mg/dL (0.6-1.3); POTASSIUM 3.6 mMol/L (3.7-5.1)
[2016-08-10 04:46] LABS: HEMATOCRIT 29.4 % (37.0-53.0); HEMOGLOBIN 10.2 g/dL (11.0-16.0); MCH 29.7 pg (27.0-34.0); MCHC 34.7 gm/dL (32.0-36.5); MCV 85.7 fl (83.0-98.0); MPV 11.2 fl (9.4-12.4); RBC 3.43 M/uL (3.50-5.50); RDW-CV 16.1 % (11.9-14.6)
[2016-08-10 04:51] LABS: WBC 17.7 K/uL (4.0-11.0)
[2016-08-10 14:17] LABS: HEMATOCRIT 29.3 % (37.0-53.0); HEMOGLOBIN 10.1 g/dL (11.0-16.0); MCH 30.1 pg (27.0-34.0); MCHC 34.5 gm/dL (32.0-36.5); MCV 87.2 fl (83.0-98.0); MPV 10.7 fl (9.4-12.4); RBC 3.36 M/uL (3.50-5.50); RDW-CV 16.3 % (11.9-14.6)
[2016-08-10 14:21] LABS: PLATELET COUNT 37 K/uL (150-450)
[2016-08-10 14:51] LABS: ABSOLUTE NEUTROPHIL CT (ANC) 16.7 K/uL (1.4-9.0); BANDED NEUTROPHIL # 2.9 K/uL (0.0-0.1); BANDED NEUTROPHILS % 16 %; LYMPHOCYTE # 0.5 K/uL (0.8-4.0); LYMPHOCYTE % 3 %; MONOCYTE # 0.7 K/uL (0.0-1.0); SEGMENTED NEUTROPHIL # 13.9 K/uL (1.4-9.0); SEGMENTED NEUTROPHIL % 77 %
--- NOTE | 2016-08-10 17:15 | NUR ---
Significant Event: Extubated at 1045. Weaned to room air while awake, but requires supplemental O2 while sleeping. Pacemaker wires and mediastinal chest tubes removed, and pleural chest tube changed to bulb suction. [place]-asif catheter removed. Continuing to use CVP and FloTrac. Up to chair with heavy 3PA. Follows commands appropriately but is hard of hearing and forgetful. Denies having pain. Follow up: continue
--- NOTE | 2016-08-10 17:28 | NUR ---
D: CABG X 5 I: ALB/EZPAP, IS/FV R: PT WAS EXTUBATED @ 10:45 TO A 4 LPM NC, STARTED EZPAP TX'S @ 10:55, RAN TX'S @ 8 LPM TO GET 18 CWP VIA MOUTHPIECE, BS C&D IN UPPER LOBES & DIM IN BASES, PT IS CURRENTLY ON 2 LPM VIA NC, PT WAS ABLE TO GET 500-750 ON IS THE FIRST TIME BUT ONLY 6 TIMES, HE SEEMED VERY CONFUSED ON HOW TO USE THE IS, WHEN ASKED TO TAKE A BIG SLOW BREATH IN HE WOULD BLOW OUT INSTEAD, NEEDS REINFORCEMENT P: CONT TO WEAN O2
--- NOTE | 2016-08-11 04:19 | NUR ---
SIGNIFICANT EVENT: NO SIGNIFICANT CHANGES THROUGHOUT SHIFT. VSS ON 2L NC AND DOBUTAMINE 2MCG/MIN. PATIENT DENIES SOB, PAIN CONTROLLED WITH ONE NORCO FOLLOWING RESPIRATORY TOILETING. 240MLS OUT OF PLEURAL CT. ORIENTED THROUGHOUT SHIFT. CI REMAINS >2.2 T/O SHIFT, SBP 90-130S. FOLLOW UP:
[2016-08-11 04:45] LABS: HEMATOCRIT 31.6 % (37.0-53.0); HEMOGLOBIN 10.7 g/dL (11.0-16.0); MCH 29.6 pg (27.0-34.0); MCHC 33.9 gm/dL (32.0-36.5); MCV 87.3 fl (83.0-98.0); MPV 12.1 fl (9.4-12.4); RBC 3.62 M/uL (3.50-5.50); RDW-CV 16.2 % (11.9-14.6)
[2016-08-11 04:47] LABS: WBC 18.8 K/uL (4.0-11.0)
[2016-08-11 04:48] LABS: CALCIUM 8.2 mg/dL (8.5-10.5); CREATININE 1.2 mg/dL (0.6-1.3); POTASSIUM 4.2 mMol/L (3.7-5.1)
[2016-08-11 04:49] LABS: ANION GAP 14.2 (10.0-19.0)
--- NOTE | 2016-08-11 13:25 | NUR ---
Significant Event: Alert and oriented x3, Hard of hearing. [place] given x1 for chest discomfort. Ambulated in perez today. Bathed this shift. VSS. R) IJ, R) and L) IV saline locked. Chest tube x1, serous drainage, DYAN bulb. Romero catheter intact. Dressing to chest C/D/I. KCl 20 meq IV and PO given today. Dobutamine off today. 1L NC. PCU status. Genna to assume cares. Follow up: transfer to PCU
--- NOTE | 2016-08-11 13:30 | NUR ---
Introduced self and role of care management to patient. He lives alone in [place], [place]. Says he has a brother in [place] and a DIL a distance from him also. Says he has good friends that help as needed. Talked to him about skilled care when he is ready for discharge since he lives alone. He is in agreement with that. Talked about options closer to home and he says [place], [place] has a Rehab care center he would want to go to. He says he sees Radha HUTCHISON for his primary care in [place]. He says a friend will probably be able to transport him when ready for skilled care. Told him I anticipate it will be later in the week when he is ready. Will make referral to [facility]. Will follow.
--- NOTE | 2016-08-11 16:07 | NUR ---
Significant Event:CARDIO: Afebrile. BP 98/70/79. HR 101. Mild edema in left hand. Notified Marichuy Infante. She will consult Dr. Swartz. 820 mL out chest tube serosanguinous. GI/: No BM. 950 mL out urine. 560 mL in IV/PO.
--- NOTE | 2016-08-12 04:56 | NUR ---
Significant Event: alert&oriented. VSS, RA with sats 92%. Pt sternal incision covered with mepilex, CT site dressing changed, DYAN bulb with 300cc out. Romero intact. R IJ and radha arm IVs saline locked. Follow up: Cont with plan of care
--- NOTE | 2016-08-12 13:34 | NUR ---
A - PT SCREENED D/T LENGTH OF STAY. HT: 64", WT: 134#, IBW: 59 KG, %IBW: 103%. CABG 08/08, INTUBATED FOR X2 DAYS. REDD[place], CANNOT ANSWER ALL QUESTIONS, SPEAKS VERY SOFT. LABS: NA 146, BUN 40, A1C 5.5%. MEDS: LIPITOR, LEVAQUIN, FIBERCON, LASIX, MILD SSI. DIET: CARDIAC. POOR APPETITE. INTAKE SIPS AND BITES. EST. NEEDS: [id number] KCAL, 61-73 GRAMS PROTEIN, FLUID NEEDS: 1ML/KCAL D - PT AT NUTRITION RISK W/ INADEQUATE ORAL INTAKE RELATED TO DECREASED APPETITE EVIDENCED BY PO SIPS AND BITES. I - PT AGREED TO TRY ENSURE ENLIVE BID. NOT APPROPRIATE FOR DIET EDUCATION AT THIS TIME D/T POOR APPETITE. M/E - GOAL: PT WILL BE ABLE TO TOLERATE >50% OF MEALS AND AT LEAST ONE ORAL SUPPLEMENT PER DAY IN 3-5 DAYS. WILL FOLLOW ORAL INTAKE AND ORAL SUPPLEMENT.
--- NOTE | 2016-08-12 15:46 | NUR ---
Called and spoke with Dustin at [facility] in [place], [place]. She says to fax the referral and the team will review. Will follow.
--- NOTE | 2016-08-12 19:07 | NUR ---
Significant Event: PT A/O X3, VSS, PT UP WITH ASSIST X1-2 W/ WALKER. PT WORK WITH THERAPY - AMBULATE IN [place], CHAIR EXERCISES - TOELERATE FAIR. MILK OF MAG GIVEN IN AM. STILL NO BM. WILL TRY OTHER MEDS TO ASSIST PT. PT TOLERATE RA. ORDERS TO D/C RIJ. CALL LIGHT AND PERSONAL ITEMS IN REACH QUESTIONS/CONCERNS ADDRESSED THIS TOD. Follow up: ENCOURAGE ACTIVITY AT TOLERATE, ENCOURAGE INTAKE AT MEALS - HIGH PROTEIN, CONTINUE TO [facility], CONTINUE PER PLAN OF CARE. WORKING TO D/C MAYBE ON THURSDAY.
--- NOTE | 2016-08-13 04:39 | NUR ---
Significant Event: VSS, MAP >70, RA. Pt DYAN out 125cc. Dressing changed. Dressing intact on sternum. up with 1a. Romero intact, adequate UOP. RIJ removed this shift. Follow up: Cont with plan of care
[2016-08-13 05:31] LABS: HEMOGLOBIN 13.7 g/dL (11.0-16.0); MCV 90.2 fl (83.0-98.0); MPV 13.2 fl (9.4-12.4); RDW-CV 15.9 % (11.9-14.6)
[2016-08-13 05:33] LABS: HEMATOCRIT 42.4 % (37.0-53.0); MCH 29.1 pg (27.0-34.0); MCHC 32.3 gm/dL (32.0-36.5); PLATELET COUNT 70 K/uL (150-450); WBC 16.9 K/uL (4.0-11.0)
[2016-08-13 05:42] LABS: ALBUMIN 3.2 gm/dL (3.5-5.0); ANION GAP 14.3 (10.0-19.0); CALCIUM 8.3 mg/dL (8.5-10.5); CREATININE 1.3 mg/dL (0.6-1.3); PHOSPHORUS 1.9 mg/dL (2.5-4.9); POTASSIUM 4.3 mMol/L (3.7-5.1)
[2016-08-13 06:07] LABS: ABSOLUTE NEUTROPHIL CT (ANC) 13.7 K/uL (1.4-9.0); BANDED NEUTROPHIL # 4.1 K/uL (0.0-0.1); BANDED NEUTROPHILS % 24 %; LYMPHOCYTE # 2.5 K/uL (0.8-4.0); LYMPHOCYTE % 15 %; MONOCYTE # 0.3 K/uL (0.0-1.0); SEGMENTED NEUTROPHIL # 9.6 K/uL (1.4-9.0); SEGMENTED NEUTROPHIL % 57 %
--- NOTE | 2016-08-13 16:36 | NUR ---
Significant Event: PT A/O X3, VSS, PT UP WITH ASSIST X1 TO CHAIR AND BATHROOM. THIS MORNING A-FIB IN 120-130S, NOTIFIED JOANIE CRISTINA APRN. ORDERED COREG, DECREASE LASIX, DIGOXIN. RATE DOWN TO 100-110S. AFTERNOON LOW BP, AND MAP < 70, PT ASYMPTOMATIC - DENIES SOB, DIZZINESS/LIGHTHEADEDNESS, NOTIFIED JOANIE CRISTINA APRN; ORDERS FOR ALBUMIN. PT RESPOND WELL, MAINTAIN HR IN 100-110, BP IMPROVED AND MAP >70. CALL LIGHT AND PERSONAL ITEMS IN REACH, QUESTION/CONCERNS ADDRESSED THIS TOD. Follow up:KEE TO BE D/C TOMORROW BY UROLOGY. CONTINUE TO [facility], CONTINUE PER PLAN OF CARE
--- NOTE | 2016-08-13 17:16 | NUR ---
Spoke with patient and updated him that made referral to [facility] and waiting for their determination. He says his friend who brought him here will take her to [facility]. Several calls to [facility] and talked with Samara, as Araceli is out. She says she has his information and will review it with the team tomorrow. She anticipates they will be able to accept him but will let me know after the team review. Faxed her an updated med list at her request. Will follow.
[2016-08-14 04:05] LABS: MCH 29.5 pg (27.0-34.0); MCHC 32.4 gm/dL (32.0-36.5); MCV 90.9 fl (83.0-98.0); MPV 12.7 fl (9.4-12.4); PLATELET COUNT 83 K/uL (150-450); RBC 4.07 M/uL (3.50-5.50); RDW-CV 15.5 % (11.9-14.6)
[2016-08-14 04:06] LABS: WBC 16.3 K/uL (4.0-11.0)
[2016-08-14 04:13] LABS: INR - (THERAPEUTIC) 2.2 (0.9-1.1); PROTIME 24.2 SECONDS (9.6-11.1)
[2016-08-14 04:33] LABS: ALBUMIN 2.8 gm/dL (3.5-5.0); BLOOD UREA NITROGEN 39 mg/dL (6-24); CALCIUM 7.9 mg/dL (8.5-10.5); CO2 27 mMol/L (22-32); ESTIMATED GFR (MDRD EQUATION) > 60; PHOSPHORUS 2.6 mg/dL (2.5-4.9)
[2016-08-14 04:41] LABS: ANION GAP 12.2 (10.0-19.0); CHLORIDE 108 mMol/L (96-110); POTASSIUM 4.2 mMol/L (3.7-5.1); SODIUM 143 mMol/L (135-145)
--- NOTE | 2016-08-14 04:49 | NUR ---
Significant Event: A/0X3. RESTED IN BED ALL OF SHIFT. TURNED Q 2 HRS. AFEBRILE. VSS ON RA. BLOOD PRESSURE 80-LOW 100'S. MAP GREATER THAN 70. NORCO GIVEN X1 FOR C/O OF ABD PAIN. PATIENT WAS ABLE TO REST COMFORTABLY AND NO C/O OF PAIN AFTERWARDS. IV TO R) FA SL. BMX1. KEE PATENT WITH 1100 UOP. Follow up: CONTINUE WITH PLAN OF CARE.
[2016-08-14 04:52] LABS: ABSOLUTE NEUTROPHIL CT (ANC) 14.2 K/uL (1.4-9.0); BANDED NEUTROPHIL # 2.8 K/uL (0.0-0.1); BANDED NEUTROPHILS % 17 %; LYMPHOCYTE # 1.1 K/uL (0.8-4.0); LYMPHOCYTE % 7 %; MONOCYTE # 0.5 K/uL (0.0-1.0); SEGMENTED NEUTROPHIL # 11.4 K/uL (1.4-9.0); SEGMENTED NEUTROPHIL % 70 %
--- NOTE | 2016-08-14 13:44 | NUR ---
reviewed student charting and on the floor from [id number] abdirahman rn-ccc
--- NOTE | 2016-08-14 16:42 | NUR ---
Received call from Araceli at [facility] and they can accept patient on Thursday. She is working on finding a physician that will follow him there as his PCP is [place] and they need a physician to follow him at their facility. Will follow.
--- NOTE | 2016-08-14 16:59 | NUR ---
Significant Event: CHILANGO IVY'D EARLY THIS AM, 0500 BY DOMONIQUE GARCIA. PT HAS VOIDED SMALL AMTS ALL SHIFT. BLADDER SCANNED AT 1645, BETWEEN 550 AND 950 ON SCAN. TRYING TO GET A HOLD OF DR GARCIA, HRT RATE ELEVATED ALL SHIFT, MED CHANGES PER JOANIE Q. MANAGED CARE ANALYST. VERY PLEASENT AND COOPERATIVE WITH CARES Follow up: WILL GET A HOLD OF UROLOGY FOR RETENTION ISSUES.
[2016-08-15 05:30] LABS: HEMATOCRIT 39.5 % (37.0-53.0); HEMOGLOBIN 12.9 g/dL (11.0-16.0); MCH 29.8 pg (27.0-34.0); MCHC 32.7 gm/dL (32.0-36.5); MCV 91.2 fl (83.0-98.0); MPV 12.2 fl (9.4-12.4); RBC 4.33 M/uL (3.50-5.50); RDW-CV 15.9 % (11.9-14.6); WBC 15.3 K/uL (4.0-11.0)
[2016-08-15 05:32] LABS: PLATELET COUNT 122 K/uL (150-450)
[2016-08-15 05:46] LABS: ALBUMIN 2.6 gm/dL (3.5-5.0); ANION GAP 13.4 (10.0-19.0); BLOOD UREA NITROGEN 36 mg/dL (6-24); CALCIUM 7.7 mg/dL (8.5-10.5); CHLORIDE 109 mMol/L (96-110); CO2 24 mMol/L (22-32); ESTIMATED GFR (MDRD EQUATION) > 60; PHOSPHORUS 3.6 mg/dL (2.5-4.9); POTASSIUM 4.4 mMol/L (3.7-5.1); SODIUM 142 mMol/L (135-145)
[2016-08-15 05:54] LABS: ABSOLUTE NEUTROPHIL CT (ANC) 13.8 K/uL (1.4-9.0); BANDED NEUTROPHIL # 1.5 K/uL (0.0-0.1); BANDED NEUTROPHILS % 10 %; LYMPHOCYTE # 0.9 K/uL (0.8-4.0); LYMPHOCYTE % 6 %; MONOCYTE # 0.2 K/uL (0.0-1.0); SEGMENTED NEUTROPHIL # 12.2 K/uL (1.4-9.0); SEGMENTED NEUTROPHIL % 80 %
--- NOTE | 2016-08-15 10:37 | NUR ---
A-NUTRITION F/U S/P CABG; PLAN TO TRANSFER TO [facility] ON 08/18/15 LABS: NA 142, K+ 4.4, GLU 138, BUN 36, TUB OPERATOR 1.0, ALB 2.6 MEDS: LASIX, PROTONIX DIET RX: CARIDAC W/ENSURE ENLIVE TID. PO INTAKE HAS IMPROVED TO 75-100% SINCE LAST F/U. EST NUTR NEEDS: 8731-5245 KCALS AND 61-73 GM PROTEIN D-AT NUTRITION RISK W/INCREASED NUTRIENT NEEDS R/T HEALING AEB STERNAL WOUND S/P CABG I-CONTINUE W/ENSURE ENLIVE TID PT NOT APPROPRIATE FOR DIET ED AT THIS TIME; PT TO BE D/C TO [facility]. M/E-GOAL: PO INTAKE >/=75% FOR DURATION OF ADMIT 1)F/U PO INTAKE, SUPPLEMENT, AND POC IN 3-5 DAYS 2)ASSIST NEEDED
--- NOTE | 2016-08-15 12:07 | NUR ---
reviewed student charting and on the floor from [phone] abdirahman rn-ccc
[2016-08-15 13:56] LABS: INR - (THERAPEUTIC) 4.3 (0.9-1.1); PROTIME 50.7 SECONDS (9.6-11.1)
--- NOTE | 2016-08-15 16:06 | NUR ---
Significant event: Alert, Oriented x3. HR 80-90's. SBP 90-110's. Map > 65. Converted to SR at 1030. Held coumadin today for INR of 4.3. RA. Lungs clear/diminished. Has 2+ edema to L tibial and 1+ to R). Dressings intact. NS at 100 ml/hr. DYAN had 285 ml of serosang fluid. Romero catheter had 825 ml. Up in halls with PT 1 assist. Follow Up: Continue current POC.
--- NOTE | 2016-08-16 04:45 | NUR ---
A/O. HR 70-80s. SBP 90-120s. ROOM AIR. AFEBRILE. STURNUM WITH MEPILEX DRESSING. STERNAL PERCAUTIONS. DYAN DRAIN WITH 170ML OUTPUT. KEE 850ML UOP. A1 WALKER GAIT BELT. DENIES PAIN. 2 SMALL BM.
[2016-08-16 06:11] LABS: INR - (THERAPEUTIC) 3.8 (0.9-1.1); PROTIME 44.5 SECONDS (9.6-11.1)
--- NOTE | 2016-08-16 17:25 | NUR ---
Significant Event: SBP 100-120'S. RATES 70'S. AFEBRILE. TYLENOL GIVEN AROUND 1110 FOR DISCOMFORT WITH RELIEF NOTED PER PATIENT. SBA WITH WALKER AND GAIT BELT TO BR. MODERATE BM AND SMALL BM X3 NOTED. KEE TO DD WITH 800ML YELLOW UOP. PLEURAL DYAN DRAIN ACCIDENTALLY PULLED AT [address] EASLEY AT BEDSIDE TO MONITOR AND DRESSING COVERING SITE, GAUZE AND SILK TAPE C/D/I. 270ML BLOODY DRAINAGE FROM BULB THIS SHIFT BEFORE DC'D. XRAY SHOWED SMALL PNEUMOTHROAX WITH F/U PORTABLE XRAY ORDERED FOR AM. STERNAL INCISION MEPILEX REMOVED, NOW OPEN TO AIR. EDGES APPROXIMATED. Follow up: CONT TO MONITOR PER PLAN OF CARE.
[2016-08-17 03:56] LABS: INR - (THERAPEUTIC) 3.4 (0.9-1.1); PROTIME 39.4 SECONDS (9.6-11.1)
--- NOTE | 2016-08-17 04:22 | NUR ---
Pt ate 75% of his dinner on 08/16/16 around 1900. Error occured when attempting to document meal.
--- NOTE | 2016-08-17 04:58 | NUR ---
Significant Event: A/O x3. Afebrile. Denies pain. VSS on RA. SBP 90-100s. Sternum site w/ sutures open to air, c/d/i. Up to BA x2. 1 assist w/ walker. Rested well throughout night. Cooperative with cares. Follow up: Continue to monitor per plan of care.
--- NOTE | 2016-08-17 17:00 | NUR ---
Significant Event: VSS ON RA. NO C/O PAIN. STERNAL INCISION OPEN TO AIR, EDGES APPROXIMATED. GAUZE/SILK TAPE C/D/I TO PRIOR CT SITES. CHEST XRAY THIS AM. LABS IN AM. BUMEX 2MG IVP GIVEN THIS AFTERNOON. 1600ML UOP FROM KEE PRIOR TO GIVING BUMEX. BM X4 TODAY. PIV TO R) WRIST SL'D. 1PA WITH WALKER AND GAIT BELT. AMBULATE IN [place] WITH THERAPY TODAY. Follow up: DC TO [facility] THURSDAY OR THURSDAY. CONT TO MONITOR PER PLAN OF CARE.
--- NOTE | 2016-08-18 04:53 | NUR ---
Significant Event: A/O x3. Afebrile. Denies pain. VSS. Applied 2L later in shift for pt sleeping. SBP 90-130s. Up to bathroom x1. Romero 3150 out. BMx1. LS clear/dim. Cooperative with cares. Turn Q 2hrs. Follow up: Continue to monitor per plan of care.
[2016-08-18 06:05] LABS: INR - (THERAPEUTIC) 2.4 (0.9-1.1); PROTIME 27.6 SECONDS (9.6-11.1)
[2016-08-18 06:11] LABS: ALBUMIN 2.3 gm/dL (3.5-5.0); ANION GAP 12.5 (10.0-19.0); BLOOD UREA NITROGEN 30 mg/dL (6-24); CALCIUM 7.6 mg/dL (8.5-10.5); CHLORIDE 108 mMol/L (96-110); CO2 26 mMol/L (22-32); ESTIMATED GFR (MDRD EQUATION) > 60; PHOSPHORUS 2.5 mg/dL (2.5-4.9); POTASSIUM 3.5 mMol/L (3.7-5.1); SODIUM 143 mMol/L (135-145)
--- NOTE | 2016-08-18 13:00 | NUR ---
Called and spoke with Araceli at [facility]. She says they normally do only one admission per day and they like them to get there in the a.m. And they already have an admission tomorrow. She will check to see if would consider two or consider him coming this evening. She also says she needs a PASSR before can accept. Told her I have never done a PASRR for a [place] patient. She will check on that also. She says Dr. Turner Montalvo will need called to accept and his # is [phone]. Call back from Araceli and she has to have a PASSR to accept patient. She says if unable to do it to call [facility] in [place] as that is the equivalent of PASSR and get direction from them. She says in [place] CADADS assesses patient before they are admitted to a facility. She says she can't accept him and make plans until PASRR or CADADs is done. She is not certain if they will accept him tomorrow due to possible other admission. Did tell her it is a [address] for his friend to come so we have to be able to plan ahead. Also told her it would have been nice to have been notified of their PASSR requirement last week as told her I have never done a PASSR for a patient going to [place]. She says she is sorry her peers covering for her did not tell me. Told her will try to do PASSR and get back to her. Was able to do a PASRR without a facilty listed. Faxed it to her to see if will be acceptable. Will follow.
--- NOTE | 2016-08-18 16:32 | NUR ---
Significant Event: Patient A/O x3. VS stable, on RA. Patient is a 1 assist gaitbelt walker transfer. Up ambulating in hallway with PT this shift, (3) BM's noted this shift. Patient has banegas, patent draining yellow urine, 1175 out this shift. Patient denies numbness or tingling to extremities, equal strength. Denies pain. Patient does well with the heart hugger. Sternal incision open to air. Chest tube sites open to air. IV to R) FA SL. Patient pleasant and cooperative with cares. Patient to be DC'd to [facility] 08/19/16. Follow up:
--- NOTE | 2016-08-19 03:44 | NUR ---
Significant Event: PT ALERT AND OREINTED NO COMPLAINTS OF PAIN. AFEBRILE. PLACED ON 1L NC WHILE ASLEEP. CONTINUES IN AFIB, RATES <110. VD PER CATHETER DUE TO URINARY RETENTION. NO BM THIS SHIFT. PIV, SL. UP WITH 1 ASSIST. Follow up:
[2016-08-19 06:44] LABS: INR - (THERAPEUTIC) 2.6 (0.9-1.1); PROTIME 29.7 SECONDS (9.6-11.1)
--- NOTE | 2016-08-19 10:51 | NUR ---
Patient A/O x3. VS stable, BP: 109/62 MAP: 82, HR 80, 02: 94% RA, Afebrile 97.4 orally. Patient is on RA during the day and 1L O2 at night. 1 assist gaitbelt and walker transfer. Patient on sternal precautions, uses the heart hugger appropriately. BM this shift. Patient has a banegas, patent draining yellow urine. No complains of pain, no numbness or tingling. Equal strength through out. Patient voids per toilet, uses call light appropriately. Incison to sternum is open to air, chest tube sites open to air and approximated. Skin is generally dry, bottom looks good. Patient is pleasant and cooperative with cares.
--- NOTE | 2016-08-19 12:45 | NUR ---
Received VMM from Araceli at [facility] this a.m. and they were able to use the PASSR to get the CODAD done and they can accept him today and is OK if he gets there in the afternoon. Spoke with patient in the a.m. and he says he is going by ambulance. Talked to him about cost of ambulance and that Medicare generally does not cover. Patient says his one friend's brother got sick and she had to go to him and his other friend thought he should go by ambulance. Orders faxed to [facility]. Attempted several times to call [facility] to tell them of plan change and on hold for extended period and not one picked up. Called comm spec and [facility] ambulance not available but they did set up [facility] to transport. Multiple calls with staff at [facility] late a.m. regarding transportaion. Talked to patient again about the cost of the ambulance and he says he is able to pay if medicare doesn't and that is the way he wants to go as it is a long way for his friends to drive. [facility] and DON and they say patient can come today as long as he understands he is responsible for the ambulance charges. Told them he was. [facility] ambulance here to transport patient. Nurse called nurse to nurse report. [facility] for [facility] care.
--- NOTE | 2016-08-19 13:05 | NUR ---
Significant Event: Patient A/O x3. VS stable on RA. Patient transferred to [facility] in [place]. Patient left the unit via ambulance staff. All belongings with patient. Called and gave report to recieving nurseNory at facility at [facility]. Patient pleasant and cooperative with cares. Follow up:
== END 2016-08-19 13:00 | DRG 235 ==
LOC: EDBD 13:30 → GPCU 14:17 → GICU 14:17 → GPCU 08-11 17:53
PROVIDERS: Family Medicine; Nurse Practitioner Women's Health; ADMIT Thoracic Surgery (Cardiothoracic Vascular Surgery)
PROC: 06BP4ZZ Excision of Right Saphenous Vein, Percutaneous Endoscopic Approach (ICD-10-PCS; principal; 2016-08-08)
PROC: 021309W Bypass Coronary Artery, Four or More Arteries from Aorta with Autologous Venous Tissue, Open Approach (ICD-10-PCS; principal; 2016-08-08)
PROC: 0T7B7ZZ Dilation of Bladder, Via Natural or Artificial Opening (ICD-10-PCS; principal; 2016-08-08)
PROC: B24BZZ4 Ultrasonography of Heart with Aorta, Transesophageal (ICD-10-PCS; principal; 2016-08-08)
PROC: 5A02210 Assistance with Cardiac Output using Balloon Pump, Continuous (ICD-10-PCS; principal; 2016-08-08)
PROC: 02100Z9 Bypass Coronary Artery, One Artery from Left Internal Mammary, Open Approach (ICD-10-PCS; principal; 2016-08-08)
PROC: 5A1221Z Performance of Cardiac Output, Continuous (ICD-10-PCS; principal; 2016-08-08)
PROC: 30233K1 Transfusion of Nonautologous Frozen Plasma into Peripheral Vein, Percutaneous Approach (ICD-10-PCS; 2016-08-09)
PROC: 30233R1 Transfusion of Nonautologous Platelets into Peripheral Vein, Percutaneous Approach (ICD-10-PCS; 2016-08-09)
PROC: 30233N1 Transfusion of Nonautologous Red Blood Cells into Peripheral Vein, Percutaneous Approach (ICD-10-PCS; 2016-08-09)
DX: I25.10 Atherosclerotic heart disease of native coronary artery without angina pectoris (principal); A41.9 Sepsis, unspecified organism; R65.21 Severe sepsis with septic shock; I48.92 Unspecified atrial flutter; N39.0 Urinary tract infection, site not specified; E78.5 Hyperlipidemia, unspecified; Z85.46 Personal history of malignant neoplasm of prostate; M10.9 Gout, unspecified; K21.9 Gastro-esophageal reflux disease without esophagitis; Z82.49 Family history of ischemic heart disease and other diseases of the circulatory system; Z79.82 Long term (current) use of aspirin; K59.00 Constipation, unspecified; R32 Unspecified urinary incontinence; N32.0 Bladder-neck obstruction; I48.91 Unspecified atrial fibrillation
CPT/HCPCS: C1713; J0171; J0282; J0690; J1160; J1250; J1644; J1650; J1956; J2060; J2150; J2250; J2260; J2440; J2704; J2720; J2930; J3370; J3475; J3480; J3490; J7030; J7040; J7050; J7060; J7121; P9016; P9017; P9035; P9045; P9047